=== PATIENT | female | born 1970 | race Caucasian/White ===

== ENCOUNTER 2019-04-24 07:51 | Day surgery (SDC) | payer MEDICAID, OTHER ==
[2019-04-24] MEDS ORDERED: Propofol 200 MG/20 ML SDV IV ONE (07:52)
[2019-04-24] MEDS ORDERED: Midazolam 1 MG/ML 2 ML SDV IV ONE (07:52)
[2019-04-24] MEDS ORDERED: Lidocaine 1% PF 2 ML SDV INJECT ONE (07:52)
[2019-04-24] MEDS ORDERED: Sodium Chloride 0.9% 10 ML Syringe FLUSH PRN (08:00)
[2019-04-24] MEDS: Lactated Ringers 1,000 ML IV SCH (08:38)
--- NOTE | 2019-04-24 09:48 | PCM.OPNOTE ---
- General Post-Op/Procedure Note Date of Surgery/Procedure: 04/24/19 Operative Procedure(s): c scope with biopsy Findings: descending colon polyp sigmoid diverticulosis Pre Op Diagnosis: screening Post-Op Diagnosis: descending colon polyp. sigmoid diverticulosis Anesthesia Technique: NATALIE Primary Surgeon: Johan Kang Anesthesia Provider: Vilma Peña Pathology: colon polyp Complications: None Condition: Good Free Text/Narrative:: see dictation
--- NOTE | 2019-04-24 10:29 | OR ---
DATE OF OPERATION: 04/24/2019 SURGEON: Johan Kang MD PROCEDURE PERFORMED: Colonoscopy with cold forceps biopsy. PREOPERATIVE DIAGNOSIS: Need for screening C-scope. POSTOPERATIVE DIAGNOSIS: Descending colon polyp, sigmoid diverticulosis. INDICATIONS FOR PROCEDURE: This is a 49-year-old white female who presents for initial screening colonoscopy. DESCRIPTION OF PROCEDURE: After an excellent IV sedation was administered, digital rectal exam was performed. No marked abnormality was noted. The flexible colonoscope was inserted and advanced to the cecum. The prep was excellent. The following findings were noted. Ascending colon, unremarkable. Transverse colon, unremarkable. Descending colon, unremarkable except for a 3- mm polyp which was biopsied with cold biopsy forceps and sent for permanent. Sigmoid colon demonstrates some mild sigmoid diverticulosis. Rectum and anus were unremarkable. The colon was deflated as the scope was removed. Patient tolerated the procedure well. Results by letter. /[id number] ALFONSO/SUSIE
== END 2019-04-24 10:50 | disposition home or self-care (01) ==
LOC: FB.SDS 07:51
PROVIDERS: ATTEND Surgery
DX: Z12.11 Encounter for screening for malignant neoplasm of colon (principal); D12.4 Benign neoplasm of descending colon; K57.30 Diverticulosis of large intestine without perforation or abscess without bleeding; I10 Essential (primary) hypertension; E66.9 Obesity, unspecified; Z79.899 Other long term (current) drug therapy; Z88.5 Allergy status to narcotic agent; Z90.49 Acquired absence of other specified parts of digestive tract; Z68.34 Body mass index [BMI] 34.0-34.9, adult
CPT/HCPCS: 45380; J2001; J2250; J2704; J7120; 88305

== ENCOUNTER 2021-11-24 14:39 | Emergency (ER) | payer MEDICAID, OTHER ==
[2021-11-24] MEDS ORDERED: Cephalexin 500 MG Cap PO ONE (14:40)
== END 2021-11-24 15:32 | disposition home or self-care (01) ==
LOC: FB.ED 14:39
DX: L03.90 Cellulitis, unspecified (principal); I10 Essential (primary) hypertension; G89.29 Other chronic pain; M25.551 Pain in right hip
CPT/HCPCS: 99281; 99283; A9270-GY

== ENCOUNTER 2022-04-19 18:08 | Emergency (ER) | payer MEDICAID ==
[2022-04-19] MEDS ORDERED: Acetaminophen/HYDROcodone 325-5 MG Tab PO ONE ×3 (18:09→18:26)
== END 2022-04-19 18:45 | disposition home or self-care (01) ==
LOC: FB.ED 18:08
DX: R10.9 Unspecified abdominal pain (principal); I10 Essential (primary) hypertension; E66.9 Obesity, unspecified; Z68.35 Body mass index [BMI] 35.0-35.9, adult; Z88.5 Allergy status to narcotic agent; Z79.899 Other long term (current) drug therapy
CPT/HCPCS: 99283; A9270-GY

== ENCOUNTER 2022-11-01 18:04 | Emergency (ER) | payer MEDICAID ==
[2022-11-01 18:29] LABS: APPEARANCE,URINE SLIGHTLY CLOUDY (CLEAR); BILIRUBIN,URINE NEGATIVE (NEGATIVE); COLOR,URINE YELLOW (YELLOW); GLUCOSE,URINE NORMAL (NORMAL); KETONES,URINE NEGATIVE (NEGATIVE); LEUKOCYTE ESTERASE,URINE MODERATE (NEGATIVE); NITRITE,URINE NEGATIVE (NEGATIVE); OCCULT BLOOD,URINE LARGE (NEGATIVE); PROTEIN,URINE 30 mg/dL (NEGATIVE); UROBILINOGEN,URINE 1 mg/dL (NEGATIVE)
[2022-11-01 18:30] LABS: BACTERIA,URINE MANY (NS); RBC,URINE 50-75 (0-5); SQUAMOUS EPITHELIAL CELLS,UR FEW (NS,R,O); WBC,URINE 20-30 (0-5)
[2022-11-01] MEDS ORDERED: Cephalexin 500 MG Cap PO ONE (18:43)
[2022-11-01] MEDS ORDERED: Phenazopyridine 95 MG Tab PO ONE (18:44)
== END 2022-11-01 19:00 | disposition home or self-care (01) ==
LOC: FB.ED 18:04
DX: N39.0 Urinary tract infection, site not specified (principal); R31.9 Hematuria, unspecified; I10 Essential (primary) hypertension; E66.9 Obesity, unspecified; Z68.38 Body mass index [BMI] 38.0-38.9, adult; Z72.0 Tobacco use; Z88.5 Allergy status to narcotic agent; Z79.899 Other long term (current) drug therapy
CPT/HCPCS: 81001; 87086; 87088; 87186; 99283; A9270